=== PATIENT | male | born 1990 | race Caucasian/White ===

== ENCOUNTER 2021-09-07 21:37 | Emergency (ER) | payer SELFPAY ==
[~2021-09-07] VITALS: Ht 172.7 cm; Wt 76.0 kg
[2021-09-07] MEDS ORDERED: KEFLEX500 MG PO (22:12)
[2021-09-07 22:25] VITALS: BP 142/79
== END 2021-09-07 22:25 | disposition home or self-care (01) | DRG 605 ==
LOC: ED 21:37
PROC: 0HQLXZZ Repair Left Lower Leg Skin, External Approach (ICD-10-PCS; principal; 2021-09-07)
DX: S81.812A Laceration without foreign body, left lower leg, initial encounter (principal); W27.0XXA Contact with workbench tool, initial encounter; Y93.H1 Activity, digging, shoveling and raking; Y92.007 Garden or yard of unspecified non-institutional (private) residence as the place of occurrence of the external cause

== ENCOUNTER 2024-06-03 18:29 | Emergency (ER) | payer SELFPAY ==
[~2024-06-03] VITALS: Ht 172.7 cm; Wt 81.5 kg
[2024-06-03] VITALS (10 sets, daily range): BP systolic 113–163; BP diastolic 54–96
[~2024-06-03 18:29] MED LIST: KEFLEX500 MG PO
[2024-06-03] MEDS ORDERED: EPINEPHrine HCL 1 MG/ML AMP IM STA (18:32)
[2024-06-03] MEDS ORDERED: FAMOTIDINE 10MG/ML 2ML SDV IV STA (18:32)
[2024-06-03] MEDS ORDERED: DiphenhydrAMINE HCL 50 MG/ML SDV IV STA (18:32)
[2024-06-03] MEDS ORDERED: methylPREDNISolone SODIUM SUCC 125 MG/2 ML SDV IV STA (18:32)
[2024-06-03] MEDS ORDERED: SODIUM CHLORIDE 0.9% 1,000 ML IV ONE (18:35)
[2024-06-03 18:55] LABS: BASO% 0.3 % (0-3); HEMATOCRIT 43.4 % (39.0-50.0); HEMOGLOBIN 14.6 g/dl (14.0-18.0); IMMATURE GRANULOCYTES 0.3 % (0.0-5.0); LYMPH% 39.7 % (15-41); MEAN CELL VOLUME 85.3 fL CALC (80.0-100.0); MEAN CORPUSCULAR HGB 28.7 pG CALC (26.0-32.0); MEAN CORPUSCULAR HGB CONC 33.6 g/dL CAL (32.0-36.0); MONO% 8.4 % (2-13); NEUT# 4.92 thou/uL (1.82-7.42); NEUT% 50.3 % (42-76); RED BLOOD COUNT 5.09 mill/uL (4.70-6.10); RED CELL DISTRI WIDTH 12.3 % (11.5-15.5)
[2024-06-03 19:12] LABS: ALBUMIN 4.6 g/dL (3.2-5.0); BILIRUBIN, TOTAL 0.4 mg/dL (0.2-1.3); CREATININE 1.4 mg/dL (0.7-1.3); POTASSIUM 3.5 mmol/l (3.5-5.1); TOTAL PROTEIN 7.3 g/dL (6.3-8.2)
[2024-06-03] MEDS ORDERED: FAMOTIDINE 10MG/ML 2ML SDV IV ONE (19:34)
[2024-06-03] MEDS ORDERED: EPINEPHrine HCL 1 MG/ML AMP IV ONE (19:34)
[2024-06-03] MEDS ORDERED: methylPREDNISolone SODIUM SUCC 125 MG/2 ML SDV IV ONE (19:34)
[2024-06-03] MEDS ORDERED: DiphenhydrAMINE HCL 50 MG/ML SDV IV ONE (19:34)
[2024-06-03] MEDS ORDERED: STERILE WATER 10 ML/VIAL SDV IV ONE (19:34)
[2024-06-03] MEDS ORDERED: predniSONE 20 MG/TAB PO ONE (19:45)
[2024-06-03] MEDS ORDERED: PREDNISONE50 MG PO (20:34)
[2024-06-03] MEDS ORDERED: EPIPEN 2-P0.3 MG/0.3 SC (20:34)
== END 2024-06-03 21:00 | disposition home or self-care (01) | DRG 918 ==
LOC: ED 18:29
PROVIDERS: Nurse Practitioner
DX: T63.441A Toxic effect of venom of bees, accidental (unintentional), initial encounter (principal); L50.0 Allergic urticaria